=== PATIENT | female | born 1955 | race Caucasian/White ===

== ENCOUNTER 2016-04-18 10:55 | Observation (INO) | payer OTHER ==
[~2016-04-18] VITALS: Ht 167.6 cm; Wt 76.7 kg
--- NOTE | 2016-04-18 11:44 | ED CARDIAC/CP/PALPITATIONS ---
History of Present Illness General Chief Complaint: Chest Pain Stated Complaint: CP Source: patient Exam Limitations: no limitations Vital Signs & Intake/Output Vital Signs & Intake/Output Vital Signs Date Time Temp Pulse Resp B/P Pulse O2 O2 Flow FiO2 Ox Delivery Rate 04/18 1435 98.6 63 18 140/66 97 Room Air 04/18 1239 97.6 69 16 129/61 100 Room Air 04/18 1138 Room Air 04/18 1102 97.6 74 18 164/76 100 Room Air Allergies Coded Allergies: Penicillins (04/18/16) Reconcile Medications No Known Home Medications Triage Note: TRIAGE; PT TO ED WITH CHEST TIGHTNESS AND NUMBNESS DOWN HER LEFT ARM AND FELT LIKE SHE WAS GOING TO PASS OUT THIS AM. STATES FATHER OF HEART ATTACK. STILL HAS NUMBNESS DOWN LEFT ARM, +ROM NOTED TO LT ARM. DENIES ANY CP AT THIS TIME, JUST "DOESNT FEEL RIGHT." DENIES ANY SOB OR N/V. Triage Nurses Notes Reviewed? yes Onset: Abrupt Duration: better, intermittent Timing: recent history Location: substernal Radiation: shoulders Activities at Onset: activity Prior Chest Pain/Card Workup: no prior chest pain, no prior cardiac workup Modifying Factors: Improves With: rest. Nitro Today/Relief: no nitro taken today HPI: Patient is a 60-year-old female who presents to emergency room with a 3 week history of chest tightness and chest heaviness that began after patient was physically exerting herself with exercise classes or walking in which she states that symptoms usually resolved after the activity has stopped however today after eating breakfast 2 hours prior to arrival while at rest she had acute onset of chest heaviness presyncope and lightheaded sensation and left arm paresthesia. Patient has not taken any medications for symptoms. Patient currently states that the chest heaviness and presyncope symptoms have resolved however still has residual left arm generalized paresthesia. 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 Patient denies smoking or illicit drugs but does drink 4-5 glasses of wine a night. She denies any fever, chills, headache nausea vomiting leg swelling hemoptysis history of DVT or PE cough shortness of breath abdominal pain back pain. (RAISA RAY,BERLIN) Past History Travel History Traveled to [place] past 21 day No Medical History Any Pertinent Medical History? see below for history EENT: MENEIRE'S DISEASE Surgical History Surgical History: non-contributory Psychosocial History What is your primary language Kazakh Tobacco Use: Quit >30 days ago Family History Hx Contributory? No (BERLIN CHAND) Review of Systems Review of Systems Constitutional: Reports: no symptoms. EENTM: Reports: no symptoms. Respiratory: Reports: see HPI. Cardiovascular: Reports: see HPI, chest pain. GI: Reports: no symptoms. Genitourinary: Reports: no symptoms. Musculoskeletal: Reports: no symptoms. Skin: Reports: no symptoms. Neurological/Psychological: Reports: see HPI, paresthesia. Hematologic/Endocrine: Reports: no symptoms. Immunologic/Allergic: Reports: no symptoms. All Other Systems: Reviewed and Negative (BERLIN CHAND) Physical Exam Physical Exam General Appearance: no apparent distress, alert Cardiovascular: regular rate/rhythm Comments: Well-developed well-nourished person in no acute distress HEENT: Normal EENT exam, Neck: Supple, no lymphadenopathy, normal range of motion without pain or tenderness Back: Nontender, no CVA tenderness. Cardiovascular: Regular rate and rhythms no murmurs rubs or gallops, normal JVP Respiratory: Chest nontender. No respiratory distress.breath sounds clear to auscultation bilaterally Abdomen: Soft, nontender nondistended, no appreciable organomegaly. Normal bowel sounds. No ascites Extremity: No edema, no calf tenderness to palpation, normal and equal pulses. Neuro: Alert oriented x3, motor sensory normal, Skin: No appreciable rash on exposed skin, skin is warm and dry. Psych: Mood and affect is normal, memory and judgment is normal. Core Measures ACS in differential dx? Yes ASA ordered for poss ACS? Yes-ordered Severe Sepsis Present: No Septic Shock Present: No (BERLIN CHAND) Progress Differential Diagnosis: AMI, aortic dissection, atrial fibrillation, cholecystitis, CHF/pulm edema, costochondritis, hyperkalemia, hypovolemia, hyperthyroid, hyperventilation, intracranial hemorrhage, musculoskeletal pain, myocarditis, pancreatitis, pericarditis, pneumonia, pneumothorax, PSVT, pulmonary embolism, PUD/GERD, PVCs/PACs, respiratory failure, rib fracture, sepsis, unstable angina, V-fib/V-Tach, WPW syndrome Plan of Care: Orders Procedure Date/time Status Regular Diet 04/19 D Active OXYGEN SETUP (GEN) 04/18 1541 Active Saline Lock 04/[address] in observation 04/18 1541 Active Vital Signs 04/18 1541 Active Activity/Ambulation 04/18 1541 Active Code Status 04/18 1541 Active Patient Data 04/18 1517 Active CIWA 04/18 1509 Active Telemetry/Recruiting Associate 04/18 1154 Active TROPONIN LEVEL 04/18 1154 Complete MAGNESIUM 04/18 1154 Complete D-DIMER 04/18 1154 Complete COMPREHENSIVE METABOLIC PANEL 04/18 1154 Complete CBC WITHOUT DIFFERENTIAL 04/18 1154 Complete B-TYPE NATRIURETIC PEP (BNP) 04/18 1154 Complete EKG 04/18 1056 Active Laboratory Tests 04/18/16 1217: Anion Gap 12, Estimated GFR > 60, BUN/Creatinine Ratio 21.4, Glucose 85, Calcium 10.1, Magnesium 1.9, Total Bilirubin 1.0, AST 32, ALT 33, Alkaline Phosphatase 120, Troponin I 0.01, Hvd-V-Ppsobevynko Pept 74.3, Total Protein 8.5 H, Albumin 5.0, Globulin 3.5, Albumin/Globulin Ratio 1.4, D-Dimer > 1050 H, CBC w Diff NO MAN DIFF REQ, RBC 5.27, MCV 75.7 L, MCH 24.3 L, RDW 14.9 H, MPV 7.5, Gran % 61.7, Lymphocytes % 24.4, Monocytes % 11.6 H, Eosinophils % 2.3, Basophils % 0 L, Absolute Granulocytes 3.7, Absolute Lymphocytes 1.5, Absolute Monocytes 0.7 H, Absolute Eosinophils 0.1, Absolute Basophils 0, PUBS MCHC 32.1 L Patient currently is in no apparent distress and on classroom monitor noted to be normal sinus rhythm. Patient does have considerable concerns of initially of angina however today patient has concerns of unstable angina which I strongly advised patient to be admitted for rule out ACS and which aspirin was administered however currently patient has no chest pain Patient had initial troponin to be negative 04/18/2016 1:58:10 PM patient also states that she has improvement of her symptoms however patient has significantly elevated d-dimer in which a CT angiogram is warranted. CT angiogram was unremarkable for pulmonary embolism. Discussed patient with Dr. Boggs who agrees with telemetry observation Discussed admission with Case management discussed with me that they approved admission (RAISA RAY,BERLIN) Diagnostic Imaging: Viewed by Me: Radiology Read, CT Scan. Radiology Impression: no acute abnormality Initial ED EKG: SINUS RHYTHM NOTED AT 65 BPM Comments: PATIENT: MOHIT ALSTON PRESENT AGE: 60 PATIENT ACCOUNT NO: [id number] : 54 LOCATION: ER ORDERING PHYSICIAN: BERLIN RAY SERVICE DATE: 04/18/16 EXAM TYPE: CAT - CTA CHEST-PULMONARY EMBOLISM EXAMINATION: CT ANGIOGRAM CHEST WITHOUT AND WITH CONTRAST (CT PULMONARY ANGIOGRAM FOR PE) CLINICAL INFORMATION: Chest pain. Elevated D-dimer. Evaluate for a pulmonary embolism. COMPARISON: Chest radiograph done earlier the same day. TECHNIQUE: Prior to contrast administration, noncontrast localization images were obtained. Subsequently, multidetector volumetric imaging was performed from the thoracic inlet to below the diaphragms following the administration of 95 mL Optiray 350 intravenous contrast. No contrast reaction reported. Sagittal, coronal, and MIP oblique sagittal reformatted images were obtained on the CT workstation, uploaded to PACS, and reviewed. TOTAL EXAM DLP: 265.78 mGy-cm FINDINGS: QUALITY OF STUDY/CONTRAST BOLUS: Satisfactory. PULMONARY ARTERIES: No central or segmental pulmonary emboli. THORACIC AORTA: No aneurysm or dissection. LUNG: No focal airspace consolidation. 4 mm nodule within the right lower lobe on series 3 image 35/62. Follow up as per Fleischner criteria below. PLEURA: No pleural effusion or pneumothorax. MEDIASTINUM: Normal heart size. No pericardial effusion. No hilar or mediastinal lymphadenopathy. No evidence of septal bowing or right heart strain. CHEST WALL/AXILLA: No axillary or internal mammary lymphadenopathy. OSSEOUS STRUCTURES: No lytic or blastic osseous lesions. UPPER ABDOMEN: Surgical clips are partially visualized within the gallbladder fossa. Otherwise, the visualized upper abdominal structures are unremarkable. No reflux of contrast into the hepatic veins to suggest elevated right heart pressures. IMPRESSION: 1. No central or segmental pulmonary emboli. 2. 4 mm nodule within the right lower lobe. Follow up as per Fleischner criteria below. VTE: Negative PATIENT: MOHIT ALSTON PRESENT AGE: 60 PATIENT ACCOUNT NO: [id number] : 54 LOCATION: ER ORDERING PHYSICIAN: BERLIN RAY SERVICE DATE: 04/18/16 EXAM TYPE: RAD - XRY-CHEST XRAY, PA AND LATERAL EXAMINATION: CHEST 2 VIEWS CLINICAL INFORMATION: Chest pain. COMPARISON: None. TECHNIQUE: PA and lateral views of the chest were obtained. FINDINGS: The cardiac silhouette is not enlarged. The mediastinal and hilar contours are unremarkable. There are neither pleural effusions nor pneumothoraces. There are no consolidations. The osseous structures are unremarkable. IMPRESSION: No evidence for acute disease. (BERLIN CHAND) Departure Departure Disposition: STILL A PATIENT Condition: Guarded Clinical Impression Primary Impression: Unstable angina Referrals: ALEXIA HIGUERA MD Departure Forms: Customer Survey General Discharge Information Prescriptions: Current Visit Scripts No Known Home Medications Observation Note Spoke With: URI BOGGS MD Physician Advisor Notified: CALEB PASCAL,ALAN [address] Place Patient In: Non-ED OBS Care Area Rationale for Observation: My rational for observation is as follows [Discussed patient with Dr. Boggs who agrees with telemetry observation for concerns of unstable angina patient requires telemetry monitoring, repeat EKG repeat labs repeat cardiac enzymes cardiology consultation and anticoagulation of aspirin. Outpatient treatment at this time would be medically harmful]. (BERLIN CHAND) PA/CHIEF PHYSICAL THERAPIST Co-Sign Statement Statement: ED Attending supervision documentation- x I saw and evaluated the patient. I have also reviewed all the pertinent lab results and diagnostic results. I agree with the findings and the plan of care as documented in the PA's/CHIEF PHYSICAL THERAPIST's documentation. [] I have reviewed the ED Record and agree with the PA's/CHIEF PHYSICAL THERAPIST's documentation. [] Additions or exceptions (if any) to the PAs/CHIEF PHYSICAL THERAPIST's note and plan are summarized below: [] (JACI PASCAL,ANA) Critical Care Note Critical Care Note Critical Care Time: 30-74 min (BERLIN CHAND)
[2016-04-18 12:30] LABS: HEMATOCRIT 39.9 % (37-47); MEAN CORPUSCULAR HGB 24.3 PG (27.0-31.0); MEAN CORPUSCULAR HGB CONC 32.1 G/DL (33.0-37.0); MEAN CORPUSCULAR VOLUME 75.7 FL (81.0-99.0); MEAN PLATELET VOLUME 7.5 FL (7.4-10.4); PLATELET COUNT 313 /CUMM (130-400); RBC DISTRIBUTION WIDTH 14.9 % (11.5-14.5); RED BLOOD CELL CT 5.27 /CUMM (4.20-5.40)
[2016-04-18 12:43] LABS: ABSOLUTE BASOPHIL COUNT 0 /CUMM (0.0-0.2); ABSOLUTE EOSINOPHIL COUNT 0.1 /CUMM (0.0-0.7); ABSOLUTE GRANULOCYTE CT 3.7 /CUMM (1.4-6.5); ABSOLUTE LYMPH COUNT 1.5 /CUMM (1.2-3.4); ABSOLUTE MONOCYTE COUNT 0.7 /CUMM (0.10-0.60); BASOPHIL % 0 % (0.0-2.0); EOSINOPHIL % 2.3 % (0-5); GRANULOCYTE % 61.7 % (42.2-75.2)
--- NOTE | 2016-04-18 12:59 | RADIOLOGY REPORT ---
EXAMINATION: CHEST 2 VIEWS CLINICAL INFORMATION: Chest pain. COMPARISON: None. TECHNIQUE: PA and lateral views of the chest were obtained. FINDINGS: The cardiac silhouette is not enlarged. The mediastinal and hilar contours are unremarkable. There are neither pleural effusions nor pneumothoraces. There are no consolidations. The osseous structures are unremarkable. IMPRESSION: No evidence for acute disease.
--- NOTE | 2016-04-18 14:49 | CT SCAN REPORT ---
EXAMINATION: CT ANGIOGRAM CHEST WITHOUT AND WITH CONTRAST (CT PULMONARY ANGIOGRAM FOR PE) CLINICAL INFORMATION: Chest pain. Elevated D-dimer. Evaluate for a pulmonary embolism. COMPARISON: Chest radiograph done earlier the same day. TECHNIQUE: Prior to contrast administration, noncontrast localization images were obtained. Subsequently, multidetector volumetric imaging was performed from the thoracic inlet to below the diaphragms following the administration of 95 mL Optiray 350 intravenous contrast. No contrast reaction reported. Sagittal, coronal, and MIP oblique sagittal reformatted images were obtained on the CT workstation, uploaded to PACS, and reviewed. TOTAL EXAM DLP: 265.78 mGy-cm FINDINGS: QUALITY OF STUDY/CONTRAST BOLUS: Satisfactory. PULMONARY ARTERIES: No central or segmental pulmonary emboli. THORACIC AORTA: No aneurysm or dissection. LUNG: No focal airspace consolidation. 4 mm nodule within the right lower lobe on series 3 image 35/62. Follow up as per Fleischner criteria below. PLEURA: No pleural effusion or pneumothorax. MEDIASTINUM: Normal heart size. No pericardial effusion. No hilar or mediastinal lymphadenopathy. No evidence of septal bowing or right heart strain. CHEST WALL/AXILLA: No axillary or internal mammary lymphadenopathy. OSSEOUS STRUCTURES: No lytic or blastic osseous lesions. UPPER ABDOMEN: Surgical clips are partially visualized within the gallbladder fossa. Otherwise, the visualized upper abdominal structures are unremarkable. No reflux of contrast into the hepatic veins to suggest elevated right heart pressures. IMPRESSION: 1. No central or segmental pulmonary emboli. 2. 4 mm nodule within the right lower lobe. Follow up as per Fleischner criteria below. VTE: Negative Various management parameters for solitary pulmonary nodules are in the literature. According to the Fleischner Society, recommendations for pulmonary nodules are as follows: Nodule size < or = to 4 mm in LOW RISK PATIENTS: No follow up needed. Nodule size < or = to 4 mm in HIGH RISK PATIENTS: Follow up CT at 12 months; if unchanged, no further follow up. Nodule size > 4-6 mm in LOW RISK PATIENTS: Follow up CT at 12 months; if unchanged, no further follow up. Nodule size > 4-6 mm in HIGH RISK PATIENTS: Initial follow up CT at 6-12 months, then at 18-24 months if no change. Nodule size > 6-8 mm in LOW RISK PATIENTS: Initial follow up CT at 6-12 months, then at 18-24 months if no change. Nodule size > 6-8 mm in HIGH RISK PATIENTS: Initial follow up CT at 3-6 months, then 9-12 months and 24 months if no change. Nodule size > 8 mm in LOW RISK PATIENTS: Follow up CT at around 3, 9, and 24 months, dynamic contrast-enhanced CT, PET, and/or biopsy. Nodule size > 8 mm in HIGH RISK PATIENTS: Same as for low-risk patients.
--- NOTE | 2016-04-18 15:32 | History & Physical ---
General Information and HPI Allergies/Medications Allergies: Coded Allergies: Penicillins (04/18/16) Home Med list No Known Home Medications Past History Travel History Traveled to [place] past 21 day No Medical History Neurological: NONE EENT: MENEIRE'S DISEASE Cardiovascular: NONE Respiratory: obstructive sleep apnea Gastrointestinal: NONE Hepatic: NONE Renal: NONE Musculoskeletal: NONE Psychiatric: NONE Endocrine: NONE Blood Disorders: NONE Cancer(s): NONE Surgical History Surgical History: non-contributory
--- NOTE | 2016-04-18 15:33 | History & Physical ---
NISH CASTELLANOS 04/18/16 1532: General Information and HPI MD Statement: I have seen and personally examined MOHIT ALSTON and documented this H&P. The patient is a 60 year old F who presented with a patient stated chief complaint of [CHEST PAIN]. 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 She has had chest tightness since last few weeks, which was 3-4 out of 10 on severe fatigue, she did not have any pressure, shortness of breath, paroxysmal nocturnal dyspnea, however today morning she started having tingling and numbness and radiation into the left arm, for she came in for further evaluation of the chest tightness and tingling and numbness in the left arm. She denied any fevers, chills, paroxysmal nocturnal dyspnea, shortness of breath , nausea, vomiting, diarrhea, constipation. Allergies/Medications Allergies: Coded Allergies: Penicillins (04/18/16) Compliance With Home Meds: GOOD Past History Travel History Traveled to [place] past 21 day No Medical History Neurological: NONE EENT: MENEIRE'S DISEASE Cardiovascular: NONE Respiratory: obstructive sleep apnea Gastrointestinal: NONE Hepatic: NONE Renal: NONE Musculoskeletal: NONE Psychiatric: NONE Endocrine: NONE Blood Disorders: NONE Cancer(s): NONE Surgical History Surgical History: non-contributory Past Family/Social History Psychosocial History Where do you live? Home Who Do You Live With? spouse, child Services at Home: None Primary Language: Portuguese Smoking Status: Never Smoked ETOH Use: half bottle of red wine daily Illicit Drug Use: denies illicit drug use Functional Ability ADLs Independent: dressing, eating, toileting, bathing. Ambulation: independent IADLs Independent: shopping, housework, finances, food prep, telephone, transportation , medication admin. Review of Systems Review of Systems Constitutional: Denies: chills, diaphoresis, fever, malaise, weakness. EENTM: Reports: no symptoms. Cardiovascular: Reports: chest pain. Denies: edema, orthopena, palpitations, peripheral edema, syncope. Respiratory: Denies: cough, hemoptysis, orthopnea, short of breath, sputum production, stridor, wheezing. GI: Denies: abdominal pain, bloating, constipation, diarrhea, distention. Genitourinary: Denies: discharge, dysuria, frequency, hematuria. Musculoskeletal: Denies: back pain, gout, joint pain, joint swelling. Skin: Denies: cysts, change in skin color, change in hair/nails, dryness. Neurological/Psychological: Reports: no symptoms. Hematologic/Endocrine: Reports: no symptoms. Immunologic/Allergic: Reports: no symptoms. All Other Systems: Reviewed and Negative Exam & Diagnostic Data Last 24 Hrs of Vital Signs/I&O Vital Signs Date Time Temp Pulse Resp B/P Pulse O2 O2 Flow FiO2 Ox Delivery Rate 04/18 1743 97.8 70 20 124/70 99 Room Air 04/18 1708 98.0 74 18 127/59 98 Room Air 04/18 1435 98.6 63 18 140/66 97 Room Air 04/18 1239 97.6 69 16 129/61 100 Room Air 04/18 1138 Room Air 04/18 1102 97.6 74 18 164/76 100 Room Air Physical Exam General Appearance Alert, Oriented X3, Cooperative, mildly anxious Skin No Rashes, No Breakdown, No Significant Lesion HEENT Atraumatic, PERRLA, EOMI Neck Supple, No JVD, No thryomegaly Lymphatic no LAD Cardiovascular Normal S1, Normal S2, No Murmurs Lungs Clear to Auscultation, Normal Air Movement Abdomen Normal Bowel Sounds, Soft, No Tenderness Neurological Strength at 5/5 X4 Ext, Normal Tone, Sensation Intact, Cranial Nerves 3-12 NL Extremities No Clubbing, No Cyanosis, No Edema, Normal Pulses Vascular Normal Pulses Last 24 Hrs of Labs/Elier: Laboratory Tests 04/18/16 1217: Anion Gap 12, Estimated GFR > 60, BUN/Creatinine Ratio 21.4, Glucose 85, Calcium 10.1, Magnesium 1.9, Total Bilirubin 1.0, AST 32, ALT 33, Alkaline Phosphatase 120, Troponin I 0.01, Oii-R-Gyahygoqlrj Pept 74.3, Total Protein 8.5 H, Albumin 5.0, Globulin 3.5, Albumin/Globulin Ratio 1.4, D-Dimer > 1050 H, CBC w Diff NO MAN DIFF REQ, RBC 5.27, MCV 75.7 L, MCH 24.3 L, RDW 14.9 H, MPV 7.5, Gran % 61.7, Lymphocytes % 24.4, Monocytes % 11.6 H, Eosinophils % 2.3, Basophils % 0 L, Absolute Granulocytes 3.7, Absolute Lymphocytes 1.5, Absolute Monocytes 0.7 H, Absolute Eosinophils 0.1, Absolute Basophils 0, PUBS MCHC 32.1 L Diagnostic Data EKG Results nsr,65,apc's, t wave inversion in v2,v4m QTC 441, LVH. CXR Results IMPRESSION: No evidence for acute disease. Other Results SERVICE DATE: 04/18/16 EXAM TYPE: CAT - CTA CHEST-PULMONARY EMBOLISM EXAMINATION: CT ANGIOGRAM CHEST WITHOUT AND WITH CONTRAST (CT PULMONARY ANGIOGRAM FOR PE) EXAMINATION: CT ANGIOGRAM CHEST WITHOUT AND WITH CONTRAST (CT PULMONARY ANGIOGRAM FOR PE) CLINICAL INFORMATION: Chest pain. Elevated D-dimer. Evaluate for a pulmonary embolism. COMPARISON: Chest radiograph done earlier the same day. TECHNIQUE: Prior to contrast administration, noncontrast localization images were obtained. Subsequently, multidetector volumetric imaging was performed from the thoracic inlet to below the diaphragms following the administration of 95 mL Optiray 350 intravenous contrast. No contrast reaction reported. Sagittal, coronal, and MIP oblique sagittal reformatted images were obtained on the CT workstation, uploaded to PACS, and reviewed. TOTAL EXAM DLP: 265.78 mGy-cm FINDINGS: QUALITY OF STUDY/CONTRAST BOLUS: Satisfactory. PULMONARY ARTERIES: No central or segmental pulmonary emboli. THORACIC AORTA: No aneurysm or dissection. LUNG: No focal airspace consolidation. 4 mm nodule within the right lower lobe on series 3 image 35/. Follow up as per Fleischner criteria below. PLEURA: No pleural effusion or pneumothorax. MEDIASTINUM: Normal heart size. No pericardial effusion. No hilar or mediastinal lymphadenopathy. No evidence of septal bowing or right heart strain. CHEST WALL/AXILLA: No axillary or internal mammary lymphadenopathy. OSSEOUS STRUCTURES: No lytic or blastic osseous lesions. UPPER ABDOMEN: Surgical clips are partially visualized within the gallbladder fossa. Otherwise, the visualized upper abdominal structures are unremarkable. No reflux of contrast into the hepatic veins to suggest elevated right heart pressures. IMPRESSION: 1. No central or segmental pulmonary emboli. 2. 4 mm nodule within the right lower lobe. Follow up as per Fleischner criteria below. VTE: Negative Various management parameters for solitary pulmonary nodules are in the literature. According to the Fleischner Society, recommendations for pulmonary nodules are as follows: Nodule size < or = to 4 mm in LOW RISK PATIENTS: No follow up needed. Nodule size < or = to 4 mm in HIGH RISK PATIENTS: Follow up CT at 12 months; if unchanged, no further follow up. Assessment/Plan Assessment: This is a 60-year-old female with past medical history of Mnire's disease with left sided hearing loss, obstructive sleep apnea on CPAP (since last 10 years), otherwise no significant cardiac history came in with chief complain off chest tightness since last few weeks. Vitals afebrile, pulse of 70, respiratory rate of 20,blood pressure of 124/70, 99 % on room air. Labs count 6.0, H/H of 12.8/39.9, platelet. 13. Leg lites within normal limits, BUN and creatinine within normal limits, glucose of 85. LFTs normal. ProBNP within normal limits. Neck sent to 60 did not show any acute cardiac pulmonary changes. CTA showed no pulmonary emboli, 4 mL nodule in the right lower lobe. We'll admit the patient to telemetry floor for continuous telemetry monitoring and rule out acute coronary syndrome. Problem #1 Rule out acute coronary syndrome. * Continue monitor vitals every shift. * Continue to trend troponins and EKG. * Cardiology on board. * Continue aspirin. * Nitroglycerin when necessary if chest pain. * Echocardiogram to monitor her baseline cardiac functioning. #2 Meniere diseae with left hearig loss * stable. #3 Right lower lung nodule * follow up as op Patient is admitted for 24-hour observation, to rule out acute coronary syndrome. If all stable continue discharged tomorrow. DVT prophylaxis with lovenox FC heart healthy diet. As Ranked By This Provider Problem List: 1. Unstable angina Core Measures/Miscellaneous Acute Coronary Syndrome ACS Diagnosis: No Cerebrovascular Accident CVA/TIA Diagnosis: No Congestive Heart Failure CHF Diagnosis: No Venous Thromboembolism VTE Risk Factors: Age > 40 VTE Prophylaxis Ordered Inpt: Pharm- Lovenox No Mech VTE prophylaxis d/t: No contraindications No VTE Pharm Prophylaxis d/t: No contraindications VTE Diagnosis: No VTE Type: NONE VTE Confirmed by (Test): NONE Severe Sepsis Severe Sepsis Present: No Septic Shock Septic Shock Present: No Miscellaneous Documentation Attending Case Discussed With: URI BOGGS MD Primary Care Physician: ALEX HANNAH MD 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 Patient seen and examined. Date of service . the patient is a 60-year-old female with history of Meniere's disease and obstructive sleep apnea on CPAP who presents with complaint of chest discomfort. She describes a substernal tightness radiating to the left arm which is a 4/10 in severity. This has been intermittent for the past few weeks. No shortness of breath. No diaphoresis. No syncope. No lightheadedness or dizziness. Review of systems: No chills. No rash. All other systems are reviewed and are noted to be negative. Physical examination: Gen: The patient is in no acute distress HEENT: Normal nose, ears, and oropharynx. Pupils equal bilaterally. Conjunctiva normal. Neck: Supple with no JVD, no masses, and no thyromegaly Lungs: Clear to auscultation with normal respiratory effort Heart: RRR, S1, S2, no murmurs. No peripheral edema, 2+ pulses in the lower extremities bilaterally Abdomen: Soft, nontender, no masses. No hepatomegaly. No splenomegaly Extremities: No clubbing or cyanosis. Normal muscle strength in the upper and lower extremities. Skin: Normal skin turgor with no skin ulcers or lesions noted. Neuro: Cranial nerves intact. Sensation intact Psych: Alert and oriented 3 with appropriate affect EKG tracing from April 18, 2016 is independently reviewed, and reveals normal sinus rhythm at 65, premature atrial complex, left ventricular hypertrophy chest x-ray April 18, 2016: Negative CTA chest April 18, 2016: 1. No central or segmental pulmonary emboli. 2. 4 mm nodule within the right lower lobe. Follow up as per Fleischner criteria below. Assessment: 1. Mnire's disease 2. Obstructive sleep apnea, on CPAP 3. Chest pain, ruled out for myocardial infarction Plan: * Monitor on telemetry * Check serial troponin to rule out myocardial infarction * Continue CPAP * Echocardiogram in the hospital if possible, or potentially as outpatient. * If she rules out for myocardial infarction, and is stable, we will plan on likely discharge tomorrow for follow-up of eczema information.
[2016-04-18 17:43] VITALS: BP 124/70
[2016-04-19 00:13] VITALS: BP 132/82
[2016-04-19 08:19] LABS: ABSOLUTE BASOPHIL COUNT 0 /CUMM (0.0-0.2); ABSOLUTE EOSINOPHIL COUNT 0.2 /CUMM (0.0-0.7); ABSOLUTE GRANULOCYTE CT 1.8 /CUMM (1.4-6.5); ABSOLUTE MONOCYTE COUNT 0.6 /CUMM (0.10-0.60); BASOPHIL % 0 % (0.0-2.0); EOSINOPHIL % 3.4 % (0-5); GRANULOCYTE % 39.5 % (42.2-75.2); HEMATOCRIT 35.7 % (37-47); MEAN CORPUSCULAR HGB 24.7 PG (27.0-31.0); MEAN CORPUSCULAR HGB CONC 32.4 G/DL (33.0-37.0); MEAN CORPUSCULAR VOLUME 76.1 FL (81.0-99.0); MEAN PLATELET VOLUME 7.7 FL (7.4-10.4); PLATELET COUNT 273 /CUMM (130-400); RBC DISTRIBUTION WIDTH 14.8 % (11.5-14.5); RED BLOOD CELL CT 4.69 /CUMM (4.20-5.40); WHITE BLOOD CELL COUNT 4.6 /CUMM (4.8-10.8)
[2016-04-19 08:37] VITALS: BP 140/88
--- NOTE | 2016-04-19 10:30 | Patient Discharge Instructions ---
Discharge Instructions General Discharge Information Special Instructions: Please follow up with your primary care physician 1 week after discharge Please follow up with squeegee finisher after discharge Acute Coronary Syndrome Inclusion Criteria At DC or during hospital stay patient has or had the following: ACS DIAGNOSIS No Discharge Core Measures Meds if any: Prescribed or Continued at Discharge Meds if any: NOT Prescribed or Continued at Discharge Congestive Heart Failure Inclusion Criteria At DC or during hospital stay patient has or had the following: CHF DIAGNOSIS No Discharge Core Measures Meds if any: Prescribed or Continued at Discharge Meds if any: NOT Prescribed or Continued at Discharge Cerebrovascular accident Inclusion Criteria At DC or during hospital stay patient has or had the following: CVA/TIA Diagnosis No Discharge Core Measures Meds if any: Prescribed or Continued at Discharge Meds if any: NOT Prescribed or Continued at Discharge Venous thromboembolism Inclusion Criteria VTE Diagnosis No VTE Type NONE VTE Confirmed by (Test) NONE Discharge Core Measures - Per Current guidelines, there needs to be overlap - treatment for the first 5 days of Warfarin therapy. - If discharged on Warfarin prior to 5 days of - overlap therapy, the patient will need to be - assessed for post discharge needs including - *Post discharge parental anticoagulation - *Warfarin and/or parental anticoagulation education - *Follow up date to check INR post discharge At least 5 days overlap therapy as Inpatient Yes Meds if any: Prescribed or Continued at Discharge Note: Overlap Therapy is Warfarin and Anticoagulant Meds if any: NOT Prescribed or Continued at Discharge
[2016-04-19] MEDS ORDERED: ASPIRIN81 M4 PO (10:31)
--- NOTE | 2016-04-19 10:31 | PN- Cardiology ---
Subjective Subjective: She reports that she is feeling better. No further chest pain. No palpitations. No diaphoresis. No lightheadedness or dizziness. No nausea or vomiting. She is anxious to be discharged. Objective Vital Signs and I&Os Vital Signs Date Time Temp Pulse Resp B/P Pulse O2 O2 Flow FiO2 Ox Delivery Rate 04/19 0837 97.1 68 18 140/88 99 Room Air 04/19 0013 97.6 70 20 132/82 96 Room Air 04/18 1743 97.8 70 20 124/70 99 Room Air 04/18 1708 98.0 74 18 127/59 98 Room Air 04/18 1435 98.6 63 18 140/66 97 Room Air 04/18 1239 97.6 69 16 129/61 100 Room Air 04/18 1138 Room Air 04/18 1102 97.6 74 18 164/76 100 Room Air Intake & Output 04/19 1600 04/19 0800 04/19 0000 04/18 1600 04/18 0800 04/18 0000 Intake Total 400 800 Output Total Balance 400 800 Intake, Oral 400 800 Patient 169 lb Weight Physical Exam: Gen: NAD HEENT: normal Lungs: clear to auscultation, normal resp. effort Heart: RRR, S1, S2, no murmurs Abdomen: Soft, nontender, no masses Extremities: No clubbing, cyanosis, or edema. Neuro: Alert and oriented x 3, cranial nerves intact Current Medications: Current Medications Sig/Ginny Start time Last Medication Dose Route Stop Time Status Admin Acetaminophen 650 MG Q6 PRN 04/18 1900 AC PO Aspirin 325 MG DAILY 04/19 1000 AC 04/19 PO 0855 Aspirin 0 .STK-MED ONE 04/18 1204 DC PO Aspirin 325 MG ONCE ONE 04/18 1200 DC 04/18 PO 04/18 1201 1205 Enoxaparin Sodium 40 MG DAILY@2200 04/19 2200 AC SC Enoxaparin Sodium 40 MG DAILY 04/18 1846 DC 04/18 SC 2155 Influenza Virus 0.5 ML ONCE ONE 04/18 1830 DC 04/19 Vaccine IM 04/18 1831 0856 Multivitamins 1 TAB DAILY 04/19 1000 CAN PO Oxycodone HCl 5 MG Q6 PRN 04/18 1900 AC PO Oxycodone/ 2 TAB Q6 PRN 04/18 1900 AC Acetaminophen PO Patient Medication 1 UNIT ONE NR 04/[address] [facility] ED 04/180 Results Last 48 Hrs of Labs/Mics: Laboratory Tests 04/19/16 0631: Anion Gap 7, Estimated GFR > 60, BUN/Creatinine Ratio 22.9, Troponin I < 0.01, Triglycerides 97, Cholesterol 241 H, LDL Cholesterol, Calc 112, HDL Cholesterol 115 H, Cholesterol/HDL Ratio 2.1, CBC w Diff NO MAN DIFF REQ, RBC 4.69, MCV 76.1 L, MCH 24.7 L, RDW 14.8 H, MPV 7.7, Gran % 39.5 L, Lymphocytes % 43.0, Monocytes % 14.1 H, Eosinophils % 3.4, Basophils % 0 L, Absolute Granulocytes 1.8, Absolute Lymphocytes 2.0, Absolute Monocytes 0.6, Absolute Eosinophils 0.2, Absolute Basophils 0, PUBS MCHC 32.4 L 04/18/167: Troponin I < 0.01 04/18/16 1217: Anion Gap 12, Estimated GFR > 60, BUN/Creatinine Ratio 21.4, Glucose 85, Calcium 10.1, Magnesium 1.9, Total Bilirubin 1.0, AST 32, ALT 33, Alkaline Phosphatase 120, Troponin I 0.01, Ski-X-Nomopewjgzv Pept 74.3, Total Protein 8.5 H, Albumin 5.0, Globulin 3.5, Albumin/Globulin Ratio 1.4, D-Dimer > 1050 H, CBC w Diff NO MAN DIFF REQ, RBC 5.27, MCV 75.7 L, MCH 24.3 L, RDW 14.9 H, MPV 7.5, Gran % 61.7, Lymphocytes % 24.4, Monocytes % 11.6 H, Eosinophils % 2.3, Basophils % 0 L, Absolute Granulocytes 3.7, Absolute Lymphocytes 1.5, Absolute Monocytes 0.7 H, Absolute Eosinophils 0.1, Absolute Basophils 0, PUBS MCHC 32.1 L Assessment/Plan Assessment/Plan Assessment: 1. Mnire's disease 2. Obstructive sleep apnea, on CPAP 3. Chest pain, ruled out for myocardial infarction Plan: * Discharge to home. * Call or to the emergency department with further chest pain. * Echocardiogram and nuclear stress test to be arranged as outpatient. * Follow up in the office in 1-2 weeks. Continue telemetry? No
== END 2016-04-19 10:56 ==
LOC: ENRESERVTM → ENRESERVDT → ERH 10:55 → ENPENDDIS 15:41 → ERHI 15:41 → 1NO 17:31
PROVIDERS: Internal Medicine; Physician Assistant; ADMIT Internal Medicine Cardiovascular Disease
DX: R07.9 Chest pain, unspecified (principal); H81.09 Meniere's disease, unspecified ear; H91.92 Unspecified hearing loss, left ear; G47.33 Obstructive sleep apnea (adult) (pediatric); R91.1 Solitary pulmonary nodule; Z23 Encounter for immunization
CPT/HCPCS: 2000; 6020; 36415; 82436; 93005; 93010; 96372; G0008; G0378; J1650; Q2036